=== PATIENT | male | born 1945 | race Caucasian/White ===

== ENCOUNTER 2019-12-01 09:08 | Inpatient (IN) | payer OTHER ==
[2019-12-01] VITALS (10 sets, daily range): BP systolic 113–167; BP diastolic 60–98
[~2019-12-01] VITALS: Ht 180.3 cm; Wt 102.5 kg
--- NOTE | 2019-12-01 12:48 | CATHLAB ---
[facility] [place] [address] INVASIVE PROCEDURE REPORT Name: DILLON ERICKSON Room #: REG [facility]#: [id number] Admission: 12/01/19 Attend Phys: Andrew Gomez MD, Discharge: Date of : 41 Report #: [id number] THIS REPORT FOR: cc: FAM - Family physician unknown FAM - Family physician unknown Andrew Gomez MD [facility] ~ APPROVED REPORT Study performed: 12/01/2019 09:50:19 Patient Details Patient Status: ED Room #: The patient is a 74 year-old male Event Personnel Andrew Gomez Filter Bed Placer, Deangelo Guido Penny, Wes RN, Shaniqua Lange RN RN, Edith Connell RTKemar Monitor Procedures Performed Art Access - R femoral artery* Left Heart Cath w/or w/o Coronaries [id number] [facility] Revasc AMI Total/Sub Single RCA C9606 AMIREVSING 77636 Initial Mod Sed Same Phys/QHP Gr5y 969796 79299 Mod Sed Same Phys/QHP Ea 568118 Indication STEMI , Chest pain Procedure Narrative The patient was brought emergently to the Cardiac Catheterization Laboratory and was prepped and draped in a sterile manner. The Right Groin^ was infiltrated with 1% Lidocaine subcutaneous anesthesia. A PINNACLE 6FR Sheath #[id number] sheath was inserted into the RFA. Coronary angiography was performed using coronary diagnostic catheters. The right coronary system was accessed and visualized with a JR4 catheter. The left coronary system was accessed and visualized with a JL4 catheter. The left ventricle was accessed and visualized with a angled pigtail catheter. Left ventricular/Aortic Valve gradient assessed via catheter pullback. Left ventriculogram was performed in 30 degree projection. Closure device was deployed with a 6 Fr MYNXGRIP 6/7F #[id number]. The patient tolerated the procedure well and there were no complications associated with the procedure. There was no hematoma. [facility] [address] [place] [address] INVASIVE PROCEDURE REPORT Name: DILLON ERICKSON Room #: REG [facility]#: [id number] Admission: 12/01/19 Attend Phys: Andrew Gomez, Discharge: Date of : 41 Report #: [id number] Intraoperative Conscious Sedation Sedation start time: 08:37 Case end Time: 09:44 Fentanyl mcg Versed 1 mg Fluoro Time: 10.19 minutes Dose: DAP 38618.10 cGycm2 2162 mGy Contrast Type and Amount: Visipaque 315 ml Coronary Angiography The patient's coronary anatomy is co- dominant. Diagnostic Cath Left Main Normal left main LAD Mild 10-20% proximal and mid LAD plaquing Diagonal 1 Large normal diagonal branch Circumflex Normal co-dominant circumflex OM1 Small to moderate size OM1, normal Right Coronary Mild proximal plaquing. Distally occluded right coronary. DONNELL 0 flow Left Ventriculography The left ventricle is mildly dilated in size with abnormal contractility. The left ventricular ejection fraction is estimated to be 40%. Left ventricular wall motion abnormalities are present. There is no mitral insufficiency. Hypokinesis involving the base and mid portions of the inferior wall. Hemodynamics The aortic pressure is 168/59 mmHg with a mean of 100 mmHg. The left ventricular pressure is 182/1 mmHg with a mean of mmHg. The left ventricular end diastolic pressure is 11 mmHg. PCI Technique Lesion Anticoagulation was achieved with Heparin, Integrilin. Patient was preloaded with Plavix. Percutaneous coronary intervention was performed on the distal right coronary artery. The lesion stenosis prior to intervention was 100% with DONNELL 0 flow. A LAUNCHER 6FR JR 4 #[id number] Guide Catheter was used to engage the ostium. A Luge Wire .014 x 182CM #[id number] Interventional Guidewire was used to cross the lesion. BALLOON DILATION A Balloon catheter Idibonphora RX 2.5 x 12 #[id number] was inserted and inflated up to 8.00atm for 24seconds. Additional Inflation: 14.00atm for 31seconds. Additional Inflation: 14.00atm for 32seconds. [facility] [address] [place] [address] INVASIVE PROCEDURE REPORT Name: DILLON ERICKSON Room #: REG CL [facility]s#: [id number] Admission: 12/01/19 Attend Phys: Andrew Gomez, Discharge: Date of : 41 Report #: [id number] Additional Inflation: 8 brian for 21 seconds. Severe disease in the proximal portion of a large posterior lateral branch. Severe distal right coronary disease with associated thrombus. STENT DEPLOYMENT A drug-eluting stent RESOLUTE RAJAT RX 3.0 X 18 #[id number] was inserted and inflated up to 12.00atm for 30seconds. First Resolute 3.[address] in proximal posterolateral branch. Second Resolute Rajat RX 3.[address] in the distal RCA and inflated up to 14 brian for 30 seconds. POST STENT DEPLOYMENT BALLOON DILATION A Balloon catheter TREK NC RX 3.0 X 15 #[id number] was inserted and inflated up to 18.00atm for 29seconds. Additional Inflation: 20.00atm for 31seconds. Additional Inflation: 22.00atm for 34seconds. Both stents were postdilated with a 3.0 x 15 mm NC trek balloon Final angiography reveals 0 % stenosis with DONNELL 3 flow. Conclusion 1. Moderate left ventricular dysfunction with basal and mid inferior wall hypokinesis. Ejection fraction 40% 2. Normal left main 3. Mild LAD and codominant circumflex plaquing 4. Occlusion of the distal right coronary with severe disease in the proximal posterolataral branch 5. Stenting of posterolateral branch (3.0 x 18 Resolute), stenting of distal RCA (3.0 x 38mm Resolute) Recommendations Cardiac Rehabilitation Referral Aggressive Medical Therapy <ELECTRONICALLY SIGNED> By: Andrew Gomez MD, FACC 12/01/19 1247 124 124 Andrew Gomez MD, FACC /INF
--- NOTE | 2019-12-01 18:19 | NUR ---
ASSUMMED PT CARE AT APPROXIMATELY 1315. PT A&O X4. FORGETFULL AT TIMES. PT DENIES HAVING CHEST PAIN. PT DENIES HAVING ACUTE PAIN. PT DENIES HAVING SOB. PT POST-CATH. R GROIN C/D/I. NO HEMATOMA. VITAL SIGNS STABLE. ADMISSION COMPLETE. POST-CATH VITAL SIGNS COMPLETE. PT AMBULATES STEADY. PT COMFORTABLE IN BED. PT DENIES HAVING FURTHER CONCERNS.
--- NOTE | 2019-12-01 18:52 | NUR ---
PT BECAME AGITATED AND RIPPED OFF TELE PACK, AND 2 IV'S. CALLED IV TEAM NURSE. INFORMED EPIC ANALYST RN. EPIC ANALYST RN STATED UNDERSTANDING AND DENIED HAVING FURTHER CONCERNS. EDUCATED POC AND MAURA Croft PT. PT STATED UNDERSTANDING AND DENIED HAVING FURTHER QUESTIONS. PT STATED "HE WOULD NOT RIP OFF NEXT IV." PT STABLE. PT NOT AGITATED CURRENTLY. PT COMFORTABLE IN BED.
--- NOTE | 2019-12-01 23:03 | NUR ---
AT SHIFT CHANGE PATIENT IS ON HIS STREET CLOTHES.PATIENT STATES HE WANTS TO GO HOME,DOESN'T REMEMBER HOW HE GOT HERE.EXPLAINED TO HIM BUT WILL NOT BELIEVE THIS NURSE.PATIENT REFUSED CARE EVEN HIS MEDS.REFUSED HEART MONITOR.RIPPED HIS IV ACCESS.DR SULLIVAN IS OKAY WITHOUT IV FLUIDS.PATIENT TAKING PO WELL.REFUSED VITALS.
[2019-12-02 04:45] VITALS: BP 141/81
[2019-12-02 05:39] LABS: HEMATOCRIT 43.5 % (42.0-52.0); HEMOGLOBIN 14.7 gm/dL (14.0-18.0); MCH 31.8 pg (26.0-34.0); MCHC 33.8 g/dL (28.0-37.0); MCV 94.2 fL (80.0-100.0); RBC 4.61 mil/uL (4.50-6.00); WBC 11.7 thou/uL (4.0-11.0)
[2019-12-02 05:52] LABS: ALBUMIN 3.5 g/dL (3.4-5.0); ANION GAP 12 mmol/L (7-16); BUN 19 mg/dL (7-18); CALCIUM 8.2 mg/dL (8.5-10.1); CHLORIDE 103 mmol/L (98-107); CHOLESTEROL 174 mg/dL (<200); CO2 24 mmol/L (21-32); GLUCOSE 96 mg/dL (74-106); HDL CHOLESTEROL 33 mg/dL (>40); LDL CHOLESTEROL 121 mg/dL (<100); POTASSIUM 3.5 mmol/L (3.5-5.1); SGOT 129 U/L (15-37); SGPT 46 U/L (30-65); SODIUM 139 mmol/L (136-145); TC:HDL 5.3 Ratio (Not establshd); TOTAL BILIRUBIN 1.1 mg/dL (<0.1-1.0); TOTAL PROTEIN 6.8 g/dL (6.4-8.2); TRIGLYCERIDE 104 mg/dL (<150); VLDL 21 mg/dL (<40)
[2019-12-02 06:13] LABS: SERUM ASSESSMENT Clear
[2019-12-02 06:14] LABS: TROPONIN-I 28.05 ng/mL (<0.06)
--- NOTE | 2019-12-02 08:35 | HC ---
[facility] [place] [address] CONSULTATION Name: DILLON ERICKSON Room #: 212-P ADM IN M.R.#: [id number] Admission: 12/01/19 Attend Phys: Andrew Gomez MD, Discharge: Date of : 43 Report #: [id number] THIS REPORT FOR: cc: YASHIRA - Family physician unknown FAM - Family physician unknown Andrew Gomez MD [facility] ~ CC: Andrew AC unknown DATE OF SERVICE: 12/01/2019 REASON FOR CONSULTATION: Myocardial infarction. HISTORY OF PRESENT ILLNESS: The patient is a 74-year-old gentleman with a limited past history. Yesterday morning around 7:00 a.m., he developed left upper shoulder and arm pain. He had never had this before. Pain waxed and waned throughout the day, although became much more severe last evening. Pain was present this morning and he presented to [facility] Emergency Department at 0635 where an EKG demonstrated inferior injury pattern. He was treated with heparin, aspirin, nitrates and was brought to [facility]. He is currently pain free. He denies heart failure symptoms, palpitations, near syncope or syncope. No prior cardiac history. ALLERGIES: No known drug allergies. MEDICATIONS: He takes no medicines other than an occasional Advil. PAST MEDICAL HISTORY: Medical records include a skin cancer excision from his scalp with no significant illnesses, hospitalizations or surgeries. SOCIAL HISTORY: Nonsmoker, nondrinker. FAMILY HISTORY: Unremarkable for premature coronary artery disease. REVIEW OF SYSTEMS: All systems negative except as that noted above. PHYSICAL EXAMINATION: GENERAL: Reveals a pleasant gentleman in no distress. VITAL SIGNS: Blood pressure is 183/90, heart rate of 82 and regular, saturations 96%, 5 feet tall, 88 kilos. HEENT: There are neither xanthelasma, subcutaneous xanthomata, oral mucosal or digital cyanosis or kyphoscoliosis present. CHEST: Clear to auscultation and percussion. CARDIAC: Regular rate and rhythm with distant heart tones. ABDOMEN: Soft and nontender. EXTREMITIES: Without cyanosis or edema. Radial pulses are 2+. [facility] [address] [place] [address] CONSULTATION Name: DILLON ERICKSON Room #: 212-P [facility] IN [facility].#: [id number] Admission: 12/01/19 Attend Phys: Andrew Gomez MD, Discharge: Date of : 41 Report #: [id number] NEUROLOGIC: He is alert with a nonfocal exam. LABORATORY DATA: EKG sinus rhythm with inferior injury. White count 7.4, hemoglobin 17, hematocrit 48, platelet count 162. Troponin 1.3, creatinine 1.0. Sodium 138, potassium 3.7. Normal liver function studies. Chest x-ray demonstrates bibasilar atelectasis. IMPRESSION: 1. Acute inferior myocardial infarction. 2. Hypertension. 3. Unknown lipid status. RECOMMENDATIONS: Urgent coronary angiography. The angiographic procedure was discussed in detail including its associated risks. After a thorough discussion of the procedure, its risks and alternatives and after answering his questions in detail, he is agreeable to proceeding. <ELECTRONICALLY SIGNED> By: Andrew Gomez MD, FACC 12/02/19 0835 0840 0914 Andrew Gomez MD, FAC /nt
[2019-12-02 09:05] VITALS: BP 121/67
[2019-12-02 12:48] VITALS: BP 117/58
--- NOTE | 2019-12-02 12:59 | 2DMMODE ---
[facility] [place] [address] 2 D/M-MODE ECHOCARDIOGRAM Name: DILLON ERICKSON Room #: 212-P ADM IN M.R.#: [id number] Admission: 12/01/19 Attend Phys: Andrew Gomez MD, Discharge: Date of : 43 Report #: [id number] THIS REPORT FOR: cc: FAM - Family physician unknown FAM - Family physician unknown Andrew Gomez MD [facility] ~ APPROVED REPORT Study performed: 12/02/2019 10:43:31 EXAM: Comprehensive 2D, Doppler, and color-flow Echocardiogram Patient Location: Echo lab Room #: 212 Status: routine BSA: 2.20 HR: 50 bpm BP: 121/67 mmHg Rhythm: Bradycardia Other Information Study Quality: Good Indications Acute IN Elevated Troponin Chest Pain 2D Dimensions RVDd: 35.27 mm IVSd: 10.66 (7-11mm) LVOT Diam: 21.10 (18-24mm) LVDd: 52.40 mm PWd: 11.48 (7-11mm) Ascending Ao: 29.17 (22-36mm) LVDs: 36.53 (25-40mm) Aortic Root: 31.83 mm IVC: 23.00 mm Volumes Left Atrial Volume (Systole) Single Plane 4CH: 52.22 mL Single Plane 2CH: 73.82 mL LA ESV Index: 34.00 mL/m2 Aortic Valve AoV Peak Diego.: 1.40 m/s AO Peak Gr.: 7.87 mmHg LVOT Max P.30 mmHg LVOT Max V: 1.26 m/s [facility] [address] [place] [address] 2 D/M-MODE ECHOCARDIOGRAM Name: ERICKSONDILLON Lange Room #: 212-P [facility] IN ..#: [id number] Admission: 12/01/19 Attend Phys: Andrew Gomez, Discharge: Date of : 43 Report #: [id number] ARSALAN Vmax: 3.13 cm2 Mitral Valve E/A Ratio: 0.8 MV Decel. Time: 294.76 ms MV E Max Diego.: 0.56 m/s MV A Diego.: 0.71 m/s MV PHT: 85.48 ms IVRT: 156.86 ms Pulmonary Valve PV Peak Diego.: 1.01 m/s PV Peak Gr.: 4.11 mmHg Pulmonary Vein P Vein S: 0.78 m/s P Vein A: 0.30 m/s P Vein D: 0.35 m/s P Vein A Dur.: 106.1 msec P Vein S/D Ratio: 2.23 Left Ventricle The left ventricle is normal size. Hypokinesis in the inferior and inferoseptal finn. There is normal left ventricular wall thickness. Left ventricular systolic function is at the lower limits of normal. LVEF is 50%. Mild diastolic dysfunction is present (impaired relaxation pattern). Right Ventricle The right ventricle is normal size. The right ventricular systolic function is normal. Atria Left atrium is at the upper limits of normal. Right atrium is at the upper limits of normal. Aortic Valve The aortic valve is normal in structure. No aortic regurgitation is present. There is no aortic valvular stenosis. Mitral Valve The mitral valve is normal in structure. Mild mitral regurgitation. No evidence of mitral valve stenosis. Tricuspid Valve The tricuspid valve is normal in structure. There is no tricuspid valve regurgitation noted. Pulmonic Valve [facility] [place] [address] 2 D/M-MODE ECHOCARDIOGRAM Name: DILLON ERICKSON Room #: 212-P [facility] IN ..#: [id number] Admission: 12/01/19 Attend Phys: Andrew Gomez, Discharge: Date of : 41 Report #: [id number] The pulmonary valve is normal in structure. Trace pulmonic regurgitation. Great Vessels The aortic root is normal in size. IVC is dilated and collapses >50% with inspiration. Pericardium There is no pericardial effusion. <Conclusion> Left ventricular systolic function is at the lower limits of normal. Hypokinesis in the inferior and inferoseptal finn. LVEF is 50%. Mild diastolic dysfunction The aortic valve is normal in structure. No aortic regurgitation or stenosis The mitral valve is normal in structure. Mild mitral regurgitation. Pulmonary artery systolic pressure cannot really ascertain There is no pericardial effusion. <ELECTRONICALLY SIGNED> By: Andrew Gomez MD, [facility] 12/02/19 1258 1258 1258 Andrew Gomez MD, [facility] /INF
--- NOTE | 2019-12-02 16:57 | NUR ---
met with patient he resides in mobile home in [place]. RN ACUTE DIALYSIS independent with adls and cont to drive. he does not use any assistive device. He reports may need transport home. Director of casemgt reports can vouch for ride home to [place]. Patient reports he is anxious to get home to his pets. He reports his son Jim Cardoso [phone] is his emergency contact. Updated admissions. He reports he is checking on dogs. Plan home independently at de. Patient has no PCP but plans to f/u with Dr Betancur.
[2019-12-02 18:32] VITALS: BP 138/70
[2019-12-02 20:45] VITALS: BP 128/69
[2019-12-03 00:06] LABS: GLYCOHEMOGLOBIN (HGB A1C) 5.7 % (4.8-5.6)
--- NOTE | 2019-12-03 04:28 | NUR ---
ASSESSMENTS CHARTED, MEDS CHARTED GIVEN. PATIENT ADAMENT ABOUT GOING HOME IN THE MORNING STATING THAT HIS DOGS ARE OUTSIDE AND NO ONE IS LOOKING OUT FOR THEM. HAD CARDIAC CATH ON 12/01 WITH STENTS TO THE RCA PLACED. ACCESS SITE IS C/D/I. HAS BEEN RUNNING SINUS PINEDA DURING SHIFT LOWER 40S. DENIED PAIN. FALL PRECAUTIONS IN PLACE.
[2019-12-03 04:45] VITALS: BP 139/69
[2019-12-03 06:00] LABS: HEMATOCRIT 42.1 % (42.0-52.0); HEMOGLOBIN 14.2 gm/dL (14.0-18.0); MCH 31.8 pg (26.0-34.0); MCHC 33.7 g/dL (28.0-37.0); MCV 94.4 fL (80.0-100.0); PLATELET COUNT 161 thou/uL (150-400); RBC 4.46 mil/uL (4.50-6.00); RDW 13.8 % (10.5-14.5); WBC 9.5 thou/uL (4.0-11.0)
[2019-12-03 06:26] LABS: ALBUMIN 3.6 g/dL (3.4-5.0); CALCIUM 8.5 mg/dL (8.5-10.1); CREATININE 1.1 mg/dL (0.7-1.3); MAGNESIUM 2.1 mg/dL (1.8-2.4); PHOSPHORUS 2.9 mg/dL (2.5-4.9); TOTAL BILIRUBIN 1.1 mg/dL (<0.1-1.0)
[2019-12-03] MEDS ORDERED: LISINOPRIL10 MG PO (07:49)
[2019-12-03] MEDS ORDERED: TOPROL XL25 MG PO (07:49)
[2019-12-03] MEDS ORDERED: CLOPIDOGREL75 MG PO (07:49)
[2019-12-03] MEDS ORDERED: LIPITOR40 MG PO (07:49)
[2019-12-03] MEDS ORDERED: ASPIRIN325 PO (07:49)
[2019-12-03 08:12] VITALS: BP 153/63
[2019-12-03 08:42] LABS: ABSOLUTE NEUTROPHILS 6.2 thou/uL (1.4-8.2)
[2019-12-03 08:43] LABS: PLATELET ESTIMATE NORMAL
[2019-12-03 11:00] VITALS: BP 128/59
[2019-12-03 14:20] VITALS: BP 128/59
--- NOTE | 2019-12-03 16:15 | NUR ---
ASSUMED CARE OF PT AT SHIFT CHANGE. ASSESSMENTS CHARTED. MEDS GIVEN PER DEC. PT A&OX3, SOMETIMES CONFUSED ON LOCATION. DISCHARGE ORDERS COMPLETE. PROVIDED DISCHARGE INSTRUCTIONS AND TEACHING TO PT AND SON WHO WAS PRESENT IN THE ROOM. TELE DC'D. PT WALKED OUT WITH SON TO PRIVATE CAR.
[2019-12-03 16:18] VITALS: BP 128/59
--- NOTE | 2019-12-18 15:27 | EKG ---
[facility] [place] [address] ELECTROCARDIOGRAM REPORT Name: DILLON ERICKSON Room #: [facility]- DIS IN M.R.#: [id number] Admission: 12/01/19 Attend Phys: Andrew Gomez MD, Discharge: 12/03/19 Date of : 43 Report #: [id number] THIS REPORT FOR: cc: FAM - Family physician unknown FAM - Family physician unknown Dale Ram MD ~ THIS REPORT FOR: //name// [facility] Test Date: 2019-12-01 Test Time: 10:00:34 Pat Name: DILLON ERICKSON Department: Room: [facility] Gender: M J2Ee Developer: Ty ALFORD : 1945 Requested By: Andrew Gomez Order Number: [id number] MD: Dale Ram Measurements Intervals [place] Rate: 44 P: 29 W[place]: 163 QRS: 51 QRSD: 104 T: 101 QT: 473 QTc: 405 Interpretive Statements Sinus bradycardia Inferior infarct, acute (RCA) Probable RV involvement, suggest recording right precordial leads No previous ECG available for comparison Electronically Signed On 12-01-2019 17:00:35 MID LEVEL GAME DESIGNER by Dale Ram [email or web address] <ELECTRONICALLY SIGNED> By: Dale Ram MD 12/01/19 1700 1000 1000 Dale Ram MD /EPI
--- NOTE | 2019-12-18 15:28 | EKG ---
[facility] [place] [address] ELECTROCARDIOGRAM REPORT Name: DILLON ERICKSON Room #: 212- DIS IN M.R.#: [id number] Admission: 12/01/19 Attend Phys: Andrew Gomez MD, Discharge: 12/03/19 Date of : 41 Report #: [id number] THIS REPORT FOR: cc: FAM - Family physician unknown FAM - Family physician unknown Dale Ram MD ~ THIS REPORT FOR: //name// [facility] Test Date: 2019-12-02 Test Time: 06:56:10 Pat Name: DILLON ERICKSON Department: Room: 212 Gender: M Graduate Teaching Assistant: Daniella REY : 1945 Requested By: Andrew Gomez Order Number: [id number] MD: Dale Ram Measurements Intervals [place] Rate: 53 P: 76 [place]: 155 QRS: 49 QRSD: 125 T: -77 QT: 493 QTc: 463 Interpretive Statements Sinus rhythm Ventricular premature complex Nonspecific intraventricular conduction delay Abnormal T, consider ischemia, diffuse leads Compared to ECG 12/01/2019 10:00:34 Electronically Signed On 12-02-2019 8:24:28 WINE MASTER by Dale Ram [email or web address] <ELECTRONICALLY SIGNED> By: Dale Ram MD 12/02/19 0824 0656 0656 Dale Ram MD /EPI
--- NOTE | 2019-12-18 15:29 | EKG ---
[facility] [place] [address] ELECTROCARDIOGRAM REPORT Name: DILLON ERICKSON Room #: 212- DIS IN M.R.#: [id number] Admission: 12/01/19 Attend Phys: Andrew Gomez MD, Discharge: 12/03/19 Date of : 41 Report #: [id number] THIS REPORT FOR: cc: FAM - Family physician unknown FAM - Family physician unknown Dale Ram MD ~ THIS REPORT FOR: //name// [facility] Test Date: 2019-12-03 Test Time: 07:25:01 Pat Name: DILLON ERICKSON Department: Room: 212 Gender: M Front Window Cashier: AXEL : 1945 Requested By: Andrew Gomez Order Number: [id number] MD: Dale Ram Measurements Intervals [place] Rate: 54 P: 60 [place]: 151 QRS: 36 QRSD: 121 T: -65 QT: 464 QTc: 440 Interpretive Statements Sinus rhythm Probable left atrial enlargement Nonspecific intraventricular conduction delay Abnormal T, probable ischemia, inferior leads Compared to ECG 12/02/2019 06:56:10 Ventricular premature complex(es) no longer present T-wave abnormality still present Possible ischemia still present Electronically Signed On 12-03-2019 8:19:11 TENNIS BALL COVER CEMENTER by Dale Ram [email or web address] <ELECTRONICALLY SIGNED> By: Dale Ram MD 12/03/19818 4 4 Dale Ram MD /EPI
== END 2019-12-03 16:59 | disposition home or self-care (01) | DRG 247 ==
LOC: CATH 09:08 → 2N 13:46
PROVIDERS: Internal Medicine; ADMIT Internal Medicine
PROC: B211YZZ Fluoroscopy of Multiple Coronary Arteries using Other Contrast (ICD-10-PCS; principal; 2019-12-01)
PROC: 4A023N7 Measurement of Cardiac Sampling and Pressure, Left Heart, Percutaneous Approach (ICD-10-PCS; principal; 2019-12-01)
PROC: B215YZZ Fluoroscopy of Left Heart using Other Contrast (ICD-10-PCS; principal; 2019-12-01)
PROC: 027035Z Dilation of Coronary Artery, One Artery with Two Drug-eluting Intraluminal Devices, Percutaneous Approach (ICD-10-PCS; principal; 2019-12-01)
DX: I21.19 ST elevation (STEMI) myocardial infarction involving other coronary artery of inferior wall (principal); I10 Essential (primary) hypertension; E78.5 Hyperlipidemia, unspecified; E66.9 Obesity, unspecified; I25.5 Ischemic cardiomyopathy; E87.6 Hypokalemia; I25.10 Atherosclerotic heart disease of native coronary artery without angina pectoris; F17.200 Nicotine dependence, unspecified, uncomplicated; Z68.31 Body mass index [BMI] 31.0-31.9, adult; Z79.82 Long term (current) use of aspirin; Z79.899 Other long term (current) drug therapy
CPT/HCPCS: 10081